=== PATIENT | male | born 1935 | race Caucasian/White ===

== ENCOUNTER 2019-03-09 08:23 | Emergency (ER) | payer MEDICARE, BC ==
[~2019-03-09] VITALS: Ht 182.9 cm; Wt 79.4 kg
[2019-03-09] MEDS ORDERED: LIDOCAINE HCL/PF 1% 30 ML VIAL TP ONE (08:30)
[2019-03-09] MEDS ORDERED: TDAP [DIPH/PERTUSSIS/TET] 0.5 ML VIAL IM ONE ×2 (08:30→08:34)
[2019-03-09] MEDS ORDERED: BACI/NEOM/POLY B OINT PKT 1 UDPKT PACKET TP ONE (08:30)
[2019-03-09] MEDS ORDERED: ACETAMINOPHEN ES 500 MG TABLET PO ONE (08:30)
[2019-03-09] MEDS ORDERED: LIDOCAINE HCL/MPF 1% 30 ML VIAL IJ ONE (08:34)
[2019-03-09] MEDS ORDERED: ACETAMINOPHEN ES 500 MG TABLET ONE (08:34)
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
--- NOTE | 2019-03-09 09:20 | NUR ---
patient came back from ct.
--- NOTE | 2019-03-09 09:35 | NUR ---
DR. JUDD AT BEDSIDE FOR LAC REPAIR
--- NOTE | 2019-03-09 10:27 | NUR ---
Patient discharged to home in stable condition. Written and verbal after care instructions given. Patient verbalizes understanding of instruction.
[2019-03-09 10:34] VITALS: BP 149/70
== END 2019-03-09 10:34 | disposition home or self-care (01) ==
LOC: EDBD 08:24 → ER 08:24
DX: S01.81XA Laceration without foreign body of other part of head, initial encounter (principal); S01.21XA Laceration without foreign body of nose, initial encounter; S13.4XXA Sprain of ligaments of cervical spine, initial encounter; I12.0 Hypertensive chronic kidney disease with stage 5 chronic kidney disease or end stage renal disease; N18.6 End stage renal disease; W01.0XXA Fall on same level from slipping, tripping and stumbling without subsequent striking against object, initial encounter; Y93.K1 Activity, walking an animal; Y92.89 Other specified places as the place of occurrence of the external cause; Y99.8 Other external cause status
CPT/HCPCS: 12013; 70450; 72125; 90471; 90715; 99284; A6403 ×3; J3490 ×2